=== PATIENT | female | born 1985 | race Two or more races ===

== ENCOUNTER 2016-08-24 22:36 | Emergency (ER) | payer SELFPAY ==
[~2016-08-24] VITALS: Ht 160 cm; Wt 56.7 kg
[2016-08-24 23:00] VITALS: BP 120/82
== END 2016-08-25 01:15 | disposition home or self-care (01) ==
LOC: ER 22:39
DX: F41.9 Anxiety disorder, unspecified (principal)
CPT/HCPCS: 93005; 99283; A4606; Z7610

== ENCOUNTER 2019-02-04 15:30 | Emergency (ER) | payer OTHER ==
[~2019-02-04] VITALS: Ht 157.5 cm; Wt 59.4 kg
--- NOTE | 2019-02-04 15:42 | NUR ---
LUC, FROM HER WORK, PT HAVING PANIC ATTACK, SOB, AND BOTH ARMS SPASM. HR 160 PER EMS ON SCENE. DENIES ANY INCIDENT PRIOR TO EVENT. STATES FEELING BETTER ON ASSESSMENT. AOX4, AMBULATORY, TACHYCARDIC, RR EVEN AND UNLABORED ON RA. ON MONITOR AND READY FOR EVAL.
[2019-02-04] MEDS ORDERED: IV NS 0.9% 1,000 ML BAG IV ONE (16:00)
[2019-02-04] MEDS ORDERED: LORAZEPAM 1 MG TABLET PO ONE (16:00)
[2019-02-04] MEDS ORDERED: LORAZEPAM 0.5 MG TABLET ONE (16:18)
[2019-02-04 16:28] LABS: BASOPHILS % (AUTO) 0.4 % (0.0-2.0); EOSINOPHILS % (AUTO) 0.6 % (0.0-6.0); HEMATOCRIT 41 % (33-45); LYMPHOCYTES # (AUTO) 1.8 /CMM (0.8-4.8); MEAN CORPUSCULAR HGB CONC 34 g/dl (31.0-36.0); MEAN CORPUSCULAR VOLUME 96 fL (82-100); MONOCYTES # (AUTO) 0.5 /CMM (0.1-1.30); PLATELET COUNT (AUTO) 241 /CMM (150-450); RED BLOOD CELL COUNT(AUTO) 4.27 MIL/uL (4.0-5.2); WHITE BLOOD COUNT (AUTO) 7.3 K/uL (4.3-11.0)
--- NOTE | 2019-02-04 16:32 | NUR ---
IV ACCESS OBTAINED, IVF INFUSING. WILL CONT TO MONITOR.
[2019-02-04 16:40] LABS: CALCIUM, SERUM 8.5 mg/dL (8.5-10.1); CREATININE 0.6 mg/dL (0.6-1.3); POTASSIUM 3.4 mmol/L (3.5-5.1)
--- NOTE | 2019-02-04 17:00 | NUR ---
IV removed. Catheter intact and site benign. Pressure and 4x4 applied to site. No bleeding noted.Patient discharged to home in stable condition. Written and verbal after care instructions given. Patient verbalizes understanding of instruction.
[2019-02-04 20:45] VITALS: BP 117/68
== END 2019-02-04 20:46 | disposition home or self-care (01) ==
LOC: ER 15:32
DX: F41.0 Panic disorder [episodic paroxysmal anxiety] (principal)
CPT/HCPCS: 36415; 80048; 85025; 93005; 99284; J7030